=== PATIENT | female | born 1955 | race Caucasian/White ===

== ENCOUNTER → 2021-01-10 | Outpatient (CLI) | payer MEDICARE ==
[~2021-01-10] MED LIST: ANORO ELLIPTA1 EACH INH; GABAPENTIN300 MG PO; LIPITOR10 MG PO; METFORMIN HCL500 MG PO; OMEPRAZOLE40 MG PO; PLAVIX75 MG PO; ULTRAM 50MG50 MG PO
[2021-01-10 10:49] LABS: BASOPHILS # (AUTO) 0.1 (0.0-0.1); BASOPHILS % 0.7 % (0.0-1.0); EOSINOPHILS # (AUTO) 0.3 (0.0-0.4); EOSINOPHILS % 3.1 % (0.0-6.0); HEMATOCRIT 44.4 % (34.2-44.1); HEMOGLOBIN 13.8 g/dL (12.0-16.0); LYMPHOCYTES # (AUTO) 2.6 (1.0-3.2); LYMPHOCYTES % 24.1 % (18.0-39.1); MEAN CORPUSCULAR HGB CONC 31.1 g/dL (31-35); MEAN CORPUSCULAR VOLUME 86.9 fL (81-99); MONOCYTES # (AUTO) 0.8 (0.2-0.8); MONOCYTES % 7.3 % (4.4-11.3); NEUTROPHILS # (AUTO) 6.8 (2.1-6.9); PLATELET COUNT 240 x10e3/uL (140-360); RED BLOOD COUNT 5.11 x10e6/uL (3.6-5.1); RED CELL DISTRIBUTION WIDTH 16.3 % (11.7-14.4)
== END ==
LOC: DX 11:29 → EDSTATUS 01-13 08:30
PROVIDERS: ATTEND Internal Medicine Gastroenterology
DX: Z01.818 Encounter for other preprocedural examination (principal); Z01.812 Encounter for preprocedural laboratory examination; Z20.822 Contact with and (suspected) exposure to COVID-19; Z12.11 Encounter for screening for malignant neoplasm of colon; K21.9 Gastro-esophageal reflux disease without esophagitis
CPT/HCPCS: 36415; 85025; 93005; U0002

== ENCOUNTER → 2021-01-24 | Outpatient (CLI) | payer MEDICARE | LOC: DX 11:31 → EDSTATUS 01-27 13:00 | PROVIDERS: ATTEND Internal Medicine | DX: Z01.812 Encounter for preprocedural laboratory examination (principal); Z20.822 Contact with and (suspected) exposure to COVID-19; Z12.11 Encounter for screening for malignant neoplasm of colon; K21.9 Gastro-esophageal reflux disease without esophagitis | CPT/HCPCS: U0002 ==